=== PATIENT | male | born 1985 | race Two or more races ===

== ENCOUNTER 2019-07-24 22:03 | Emergency (ER) | payer OTHER ==
[~2019-07-24] VITALS: Ht 182.9 cm; Wt 101.6 kg
[2019-07-24 22:05] VITALS: Ht 182.9 cm; Wt 101.6 kg
[2019-07-25 00:56] LABS: BASOPHIL % 0.4 % (0-2); PLATELET COUNT 204 x10^3mcL (130-400); RED CELL DISTRIBUTION WIDTH 13.3 % (11.5-14.5)
[2019-07-25 01:36] LABS: CALCIUM 8.3 mg/dL (8.5-10.1); CARBON DIOXIDE 27.4 mmol/L (21-32); CHLORIDE SERUM 107 mmol/L (98-107); GFR1 > 60 mL/min; GLUCOSE SERUM 105 mg/dL (74-106); POTASSIUM SERUM 4.1 mmol/L (3.5-5.1); SODIUM SERUM 146 mmol/L (136-145)
[2019-07-25 01:42] LABS: ALBUMIN 3.9 g/dL (3.4-5.0); ALKALINE PHOSPHATASE 83 U/L (46-116); ALT/SGPT 45 U/L (16-63); AST/SGOT 22 U/L (15-37); BILIRUBIN TOTAL 0.1 mg/dL (0.20-1.00); TOTAL PROTEIN, SERUM 6.9 g/dL (6.4-8.2)
[2019-07-25 01:46] LABS: CHOLESTEROL 214 mg/dL (<200); CHOLESTEROL/HDL RATIO 7.6; HDL CHOLESTEROL 28 mg/dL (40-60); TRIGLYCERIDES 212 mg/dL (<150)
[2019-07-25 02:05] VITALS: BP 138/74
== END 2019-07-25 02:05 | disposition home or self-care (01) ==
LOC: ED 22:03
PROVIDERS: Emergency Medicine
DX: R07.89 Other chest pain (principal); E78.00 Pure hypercholesterolemia, unspecified; F17.210 Nicotine dependence, cigarettes, uncomplicated; Z71.6 Tobacco abuse counseling
CPT/HCPCS: 36415; 85378; 99406

== ENCOUNTER 2020-10-18 20:05 | Emergency (ER) | payer OTHER ==
[~2020-10-18] VITALS: Ht 182.9 cm; Wt 101.6 kg
[2020-10-18 20:36] VITALS: Ht 182.9 cm; Wt 101.6 kg
[2020-10-18 21:38] LABS: RED CELL DISTRIBUTION WIDTH 12.9 % (12.1-16.2)
[2020-10-18 21:43] LABS: PLATELET COUNT 200 x10^3mcL (152-348)
[2020-10-18 21:45] LABS: CALCIUM 8.6 mg/dL (8.5-10.1); CARBON DIOXIDE 30.1 mmol/L (21-32); CHLORIDE SERUM 103 mmol/L (98-107); CREATININE SERUM 0.8 mg/dL (0.7-1.3); GFR1 > 60 mL/min; GLUCOSE SERUM 95 mg/dL (74-106); POTASSIUM SERUM 4.1 mmol/L (3.5-5.1); SODIUM SERUM 140 mmol/L (136-145)
[2020-10-18 21:50] LABS: ALBUMIN 4.2 g/dL (3.4-5.0); ALKALINE PHOSPHATASE 74 U/L (46-116); ALT/SGPT 50 U/L (16-63); AST/SGOT 19 U/L (15-37); BILIRUBIN TOTAL 0.1 mg/dL (0.20-1.00); TOTAL PROTEIN, SERUM 7.3 g/dL (6.4-8.2)
[2020-10-18] MEDS ORDERED: SOM350 PO (22:37)
[2020-10-18] MEDS ORDERED: ACETAMINOPHEN-H1 TA1 PO (22:37)
[2020-10-18] MEDS ORDERED: NAP375 PO (22:37)
[2020-10-18 23:16] VITALS: BP 129/87
== END 2020-10-18 23:16 | disposition home or self-care (01) ==
LOC: ED 20:05
PROVIDERS: Emergency Medicine
DX: M54.9 Dorsalgia, unspecified (principal); R10.9 Unspecified abdominal pain
CPT/HCPCS: J1885; J7030